=== PATIENT | female | born 1980 | race Caucasian/White ===

== ENCOUNTER 2018-02-12 08:29 | Day surgery (SDC) | payer BC ==
[2018-02-11 10:59] LABS: CHLORIDE,CL 105 mmol/L (98-107); SODIUM,NA 140 mmol/L (136-145)
[~2018-02-12 08:29] MED LIST: Fluorescein 5 ML Vial ONE; HYDROmorphone 2 MG/ML SDV ONE; Lactated Ringers 1,000 ML IV SCH; Lidocaine 2% 5 ML SDV ONE; Midazolam 1 MG/ML 2 ML SDV ONE; Ondansetron 4 MG/2 ML SDV ONE; Propofol 200 MG/20 ML SDV ONE; Rocuronium 10 MG/ML 10 ML Syringe ONE; Sodium Chloride 0.9% 10 ML Syringe FLUSH PRN; Sodium Chloride 0.9% 2.5 ML Syringe FLUSH PRN; ceFAZolin 2 GM in Premix Bag 1 BAG IV ONE; ceFAZolin/Dextrose,Iso-Osmotic 2 GM/50 ML Duplex Bag IV ONE; fentaNYL 250 MCG/5 ML SDV ONE
--- NOTE | 2018-02-12 09:28 | PCM.PREANE ---
Preanesthetic Assessment - Anesthesia/Transfusion/Family Hx Anesthesia History: Prior Anesthesia Without Reaction Other Type of Anesthesia Reaction Comment: Denies any known problems in the past Family History of Anesthesia Reaction: No Transfusion History: Prior Transfusion Without Reaction Intubation History: Unknown - Review of Systems General: No Symptoms Pulmonary: No Symptoms Cardiovascular: No Symptoms Gastrointestinal: No Symptoms Neurological: No Symptoms Other: Reports: None - Physical Assessment Height: 1.75 m Weight: 134.717 kg ASA Class: 2 Mental Status: Alert & Oriented x3 Airway Class: Mallampati = 2 Dentition: Reports: Normal Dentition, Broken Tooth/Teeth (small chip upper front (right), next tooth is '') Thyro-Mental Finger Breadths: 3 Mouth Opening Finger Breadths: 2 ROM/Head Extension: Full Lungs: Clear to Auscultation, Normal Respiratory Effort Cardiovascular: Regular Rate, Regular Rhythm - Lab Values: Laboratory Last Values WBC 7.50 K/uL (4.0-11.0) 02/11/18 10:14 RBC 4.88 M/uL (4.30-5.90) 02/11/18 10:14 Hgb 13.0 g/dL (12.0-16.0) 02/11/18 10:14 Hct 40.0 % (36.0-46.0) 02/11/18 10:14 MCV 82.0 fL (80.0-98.0) 02/11/18 10:14 MCH 26.6 pg (27.0-32.0) L 02/11/18 10:14 MCHC 32.5 g/dL (31.0-37.0) 02/11/18 10:14 RDW Std Deviation 41.4 fl (28.0-62.0) 02/11/18 10:14 RDW Coeff of Lilliam 14 % (11.0-15.0) 02/11/18 10:14 Plt Count 267 K/uL (150-400) 02/11/18 10:14 MPV 9.50 fL (7.40-12.00) 02/11/18 10:14 Nucleated RBC % 0.0 /100WBC 02/11/18 10:14 Nucleated RBCs # 0 K/uL 02/11/18 10:14 Sodium 140 mmol/L (136-145) 02/11/18 10:14 Potassium 4.3 mmol/L (3.5-5.1) 02/11/18 10:14 Chloride 105 mmol/L (98-107) 02/11/18 10:14 Carbon Dioxide 24.2 mmol/L (21.0-32.0) 02/11/18 10:14 BUN 14 mg/dL (7.0-18.0) 02/11/18 10:14 Creatinine 1.0 mg/dL (0.6-1.0) 02/11/18 10:14 Est Cr Clr Drug Dosing 79.72 mL/min 02/11/18 10:14 Estimated GFR (MDRD) > 60.0 ml/min 02/11/18 10:14 Glucose 108 mg/dL (74-106) H 02/11/18 10:14 Calcium 9.4 mg/dL (8.5-10.1) 02/11/18 10:14 HCG, Qual NEGATIVE (NEG) 02/11/18 10:14 Blood Type A POSITIVE 02/11/18 10:14 Antibody Screen NEGATIVE 02/11/18 10:14 - Allergies Allergies/Adverse Reactions: Allergies Allergy/AdvReac Type Severity Reaction Status Date / Time No Known Allergies Allergy Verified 02/10/18 07:36 - Blood Blood Available: No - Anesthesia Plan Pre-Op Medication Ordered: None - Acknowledgements Anesthesia Type Planned: General Anesthesia Pt an Appropriate Candidate for the Planned Anesthesia: Yes Alternatives and Risks of Anesthesia Discussed w Pt/Guardian: Yes Pt/Guardian Understands and Agrees with Anesthesia Plan: Yes PreAnesthesia Questionnaire HEENT History: Reports: Impaired Vision, Other (See Below) Other HEENT History: wears glasses Cardiovascular History: Reports: None, Other (See Below) (h/o HTN) Respiratory History: Reports: Asthma, COPD Gastrointestinal History: Reports: GERD Genitourinary History: Reports: None MANAGER OF MEDICAL History: Reports: Spontaneous Musculoskeletal History: Reports: Fracture Other Musculoskeletal History: hx fx rt arm and rt leg Neurological History: Reports: Migraines Psychiatric History: Reports: Anxiety, Depression Endocrine/Metabolic History: Reports: Diabetes, Type II, Obesity/BMI 30+ (BMI 43.9) Hematologic History: Reports: Blood Transfusion(s) Other Hematologic History: states blood transfusion after miscarriage Immunologic History: Reports: None Oncologic (Cancer) History: Reports: None Dermatologic History: Reports: Other (See Below) Other Dermatologic History: axillary hidradenitits suppurativa, MRSA - Infectious Disease History Infectious Disease History: Reports: MRSA - Past Surgical History Head Surgeries/Procedures: Reports: None GI Surgical History: Reports: EGD Female Surgical History: Reports: D&C, Tubal Ligation Musculoskeletal Surgical History: Reports: Carpal Tunnel Dermatological Surgical History: Reports: Other (See Below) (excision for axillary hydradenitis) - SUBSTANCE USE Smoking Status *Q: Current Every Day Smoker (1/2 ppd) Tobacco Use Within Last Twelve Months: Cigarettes Days Per Week of Alcohol Use: 0 Number of Drinks Per Day: 0 Total Drinks Per Week: 0 Recreational Drug Use History: No - HOME MEDS Home Medications: Home Meds Albuterol Sulfate [Albuterol Sulfate HFA] 2 puff INH ASDIRECTED PRN 01/16/15 [ History] metFORMIN [Glucophage XR] 500 mg PO ACDINNER 02/14/17 [History] Dulaglutide [Trulicity] 1.5 mg SUBCUT WEEKLY 02/10/18 [History] Empagliflozin [Jardiance] 10 mg PO DAILY 02/10/18 [History] Glycopyrrolate/Formoterol Fum [Bevespi Aerosphere Inhaler] 2 puff INH BID [History] Promethazine HCl 1 - 2 tab PO ASDIRECTED PRN 02/10/18 [History] - CURRENT (IN HOUSE) MEDS Current Meds: Current Medications Lactated Ringer's (Ringers, Lactated) 1,000 mls @ 125 mls/hr IV ASDIRECTED PRISCILA Sodium Chloride (Saline Flush) 10 ml FLUSH ASDIRECTED PRN PRN Reason: Keep Vein Open Sodium Chloride (Saline Flush) 2.5 ml FLUSH ASDIRECTED PRN PRN Reason: Keep Vein Open Discontinued Medications Cefazolin Sodium/Dextrose (Ancef) Confirm Administered Dose 2 gm IV .STK-MED ONE Stop: 02/12/18 08:28 Fentanyl (Sublimaze) Confirm Administered Dose 250 mcg .ROUTE .STK-MED ONE Stop: 02/12/18 08:28 Fluorescein Sodium (Ak-Fluor) Confirm Administered Dose 5 ml .ROUTE .STK-MED ONE Stop: 02/12/18 07:41 Hydromorphone HCl (Dilaudid) Confirm Administered Dose 2 mg .ROUTE .STK-MED ONE Stop: 02/12/18 08:29 Cefazolin Sodium/Dextrose 2 gm (/ Premix) 50 mls @ 100 mls/hr IV ONETIME ONE Stop: 02/11/18 10:17 Acetaminophen (Ofirmev) Confirm Administered Dose 100 mls @ as directed IV .STK- MED ONE Stop: 02/12/18 07:41 Lidocaine (Xylocaine-Mpf 2%) Confirm Administered Dose 5 ml .ROUTE .STK-MED ONE Stop: 02/12/18 08:28 Midazolam HCl (Versed 1 Mg/Ml) Confirm Administered Dose 2 mg .ROUTE .STK-MED ONE Stop: 02/12/18 08:28 Ondansetron HCl (Zofran) Confirm Administered Dose 4 mg .ROUTE .STK-MED ONE Stop: 02/12/18 08:28 Propofol (Diprivan 20 Ml) Confirm Administered Dose 200 mg .ROUTE .STK-MED ONE Stop: 02/12/18 08:28 Rocuronium [place] (Zemuron) Confirm Administered Dose 100 mg .ROUTE .STK-MED ONE Stop: 02/12/18 08:28
[2018-02-12] MEDS ORDERED: Scopolamine 1.5 MG Transdermal Patch TRDERM PRN (09:35)
[2018-02-12] MEDS ORDERED: Fluorescein 5 ML Vial ONE (09:41)
[2018-02-12] MEDS ORDERED: Octyl 2-Cyanoacrylate 1 Tube ONE (09:41)
[2018-02-12] MEDS ORDERED: Dextrose 5% in Water 1,000 ML IV SCH (09:45)
[2018-02-12] MEDS ORDERED: HYDROmorphone 2 MG/ML SDV ONE (11:03)
[2018-02-12] MEDS ORDERED: Dexamethasone 4 MG/ML 5 ML MDV ONE (11:10)
[2018-02-12] MEDS ORDERED: Neostigmine Methylsulfate 1 MG/ML 5 ML Syringe ONE (11:45)
[2018-02-12] MEDS ORDERED: Glycopyrrolate 0.2 MG/ML SDV ONE (11:45)
[2018-02-12] MEDS ORDERED: Promethazine 25 MG/ML SDV IM PRN (11:52)
[2018-02-12] MEDS ORDERED: Acetaminophen/oxyCODONE 325-5 MG Tab PO PRN (11:52)
[2018-02-12] MEDS ORDERED: Ketorolac 30 MG/ML SDV IVPUSH ONE (11:52)
[2018-02-12] MEDS ORDERED: Ondansetron 4 MG/2 ML SDV IVPUSH PRN (11:52)
[2018-02-12] MEDS ORDERED: Morphine 4 MG/ML Syringe IVPUSH PRN (11:52)
--- NOTE | 2018-02-12 11:58 | PCM.OPNOTE ---
- General Post-Op/Procedure Note Date of Surgery/Procedure: 02/12/18 Operative Procedure(s): TLH, [place]. Salpengectomy and Custoscopy. Pre Op Diagnosis: Bleeding Post-Op Diagnosis: Same Primary Surgeon: Hai Calvillo Manager Leasing: Yanira Ellsworth EBL in mLs: 150 Complications: None Condition: Good
[2018-02-12] MEDS: fentaNYL 100 MCG/2 ML SDV IVPUSH PRN ×2 (12:25→12:30)
--- NOTE | 2018-02-12 12:48 | PCM.POSTAN ---
POST ANESTHESIA ASSESSMENT - MENTAL STATUS Mental Status: Alert, Oriented - RESPIRATORY Respiratory Status: Respiratory Rate WNL, Airway Patent, O2 Saturation Stable - CARDIOVASCULAR CV Status: Pulse Rate WNL, Blood Pressure Stable - GASTROINTESTINAL GI Status: No Symptoms - PAIN Pain Score: 3 - POST OP HYDRATION Hydration Status: Adequate & Stable - OBSERVATIONS Free Text/Narrative:: no anesthesia problems
--- NOTE | 2018-02-12 14:12 | OR ---
SURGEON: Hai Calvillo MD DATE OF PROCEDURE: PREOPERATIVE DIAGNOSES: 1. Menometrorrhagia. 2. Large uterus. POSTOPERATIVE DIAGNOSES: 1. Menometrorrhagia. 2. Large uterus. OPERATIONS PERFORMED: 1. Total laparoscopic hysterectomy. 2. Bilateral salpingectomy, preserving both ovaries. PIGMENT MIXER: MARTHA Catalan ANESTHESIA: General endotracheal intubation, Moon Mendez and Dr. Smiley. ESTIMATED BLOOD LOSS: 150 mL. COMPLICATIONS: None. FINDINGS: Uterus is about 11 week size. There is no pelvic adhesion. INDICATION FOR SURGERY: [place] refer to the admit note. PROCEDURE IN DETAIL: The patient was brought to the OR, properly identified. After adequate level of general anesthesia, the patient was placed in lithotomy position with an access to the abdomen and the vagina. The colpotomizer manipulator was placed in the uterus for manipulation. Then, operation shifted abdominally. Stab wound done beneath the umbilicus. The Veress needle was placed in the peritoneal cavity and that cavity insufflated 3.5 L of carbon dioxide, and then the peritoneal cavity was entered through infraumbilical incision utilizing the Visiport technique. Once we are in the peritoneal cavity, then patient was placed in steep Trendelenburg, and 10 to 12 trocar placed in the left iliac fossa and a 5 mm trocar in the right iliac fossa. The operation was started by identifying the landmark of the pelvis and the superior pedicle coagulated and transected utilizing the DONTRELL-7 Harmonic scapula on both sides. Both tubes were removed. Then, the round ligament is coagulated and transected both sides and then anterior lip of broad ligament dissected downward medially pushing the bladder completely away from the operative field. Skeletonization of the uterine vessels at the level of the internal rings and these vessel coagulated and transected using Dontrell Harmonic scapula. There was an area of bleeding from the left uterine vessel that was isolated and identified, and hemoclips were used to stop the bleeding and hemostasis was achieved. Once that is done, then circular incision in the vaginal mucosa around the tip of the manipulator detaching the cervix from its attachment to the vagina. The uterus and both tubes removed vaginally and pneumoperitoneum re-established by placing vaginal pack in the vagina, and then vaginal cuff was closed with 2-0 PDS interrupted sutures. Once we did that and while we were doing that, we asked Anesthesia personnel to give the patient fluorescein and then the patient was taken out. Cystoscopy was performed. The bladder was intact. Both ureteric orifices were seen with the dye coming from both of them. Thus, the patency of both ureters verified and satisfied with these findings. The instrument and hardware were retrieved from the abdomen and the vagina, and the multiple laparoscopic incisions were closed in layers. The patient tolerated the procedure well, went to recovery room in stable general condition. CATINA / VILMA /[id number]
[2018-02-12] MEDS: Acetaminophen/oxyCODONE 325-5 MG Tab PO PRN ×3 (14:57→22:50)
[2018-02-12] MEDS ORDERED: Ketorolac 30 MG/ML SDV IVPUSH PRN (18:00)
[2018-02-13] MEDS: Acetaminophen/oxyCODONE 325-5 MG Tab PO PRN ×2 (03:10→08:40)
[2018-02-13 05:38] LABS: CHLORIDE,CL 105 mmol/L (98-107); SODIUM,NA 139 mmol/L (136-145)
--- NOTE | 2018-02-13 07:42 | PCM48HPAN ---
Post Anesthesia Note - EVALUATION WITHIN 48HRS OF ANESTHETIC Vital Signs in Normal Range: Yes Patient Participated in Evaluation: Yes Respiratory Function Stable: Yes Airway Patent: Yes Cardiovascular Function Stable: Yes Hydration Status Stable: Yes Pain Control Satisfactory: Yes Nausea and Vomiting Control Satisfactory: Yes Mental Status Recovered: Yes Resp Rate: 18
--- NOTE | 2018-02-13 09:07 | PCM.SURGPN ---
- General Info Date of Service: 02/13/18 POD#: 1 Functional Status: Reports: Pain Controlled - Review of Systems General: Reports: No Symptoms HEENT: Reports: No Symptoms Pulmonary: Reports: No Symptoms Cardiovascular: Reports: No Symptoms Gastrointestinal: Reports: No Symptoms Genitourinary: Reports: No Symptoms Musculoskeletal: Reports: No Symptoms Skin: Reports: No Symptoms Neurological: Reports: No Symptoms Psychiatric: Reports: No Symptoms - Patient Data Vitals - Most Recent: Last Vital Signs Temp 35.9 C 02/13/18 04:00 Pulse 90 02/13/18 04:00 Resp 18 02/13/18 07:42 BP 133/75 02/13/18 04:00 Pulse Ox 96 02/13/18 04:00 Weight - Most Recent: 134.717 kg I&O - Last 24 Hours: Intake & Output 02/12/18 02/13/18 02/13/18 22:59 06:59 14:59 Intake Total 800 Output Total 2100 Balance -1300 Lab Results Last 24 Hrs: Laboratory Results - last 24 hr 02/12/18 02/12/18 02/12/18 Range/Units 09:29 12:12 15:44 WBC (4.0-11.0) K/uL RBC (4.30-5.90) M/uL Hgb (12.0-16.0) g/dL Hct (36.0-46.0) % MCV (80.0-98.0) fL MCH (27.0-32.0) pg MCHC (31.0-37.0) g/dL RDW Std Deviation (28.0-62.0) fl RDW Coeff of Lilliam (11.0-15.0) % Plt Count (150-400) K/uL MPV (7.40-12.00) fL Neut % (Auto) (48.0-80.0) % Lymph % (Auto) (16.0-40.0) % [place] % (Auto) (0.0-15.0) % Eos % (Auto) (0.0-7.0) % Baso % (Auto) (0.0-1.5) % Neut # (Auto) (1.4-5.7) K/uL Lymph # (Auto) (0.6-2.4) K/uL [place] # (Auto) (0.0-0.8) K/uL Eos # (Auto) (0.0-0.7) K/uL Baso # (Auto) (0.0-0.1) K/uL Nucleated RBC % /100WBC Nucleated RBCs # K/uL Sodium (136-145) mmol/L Potassium (3.5-5.1) mmol/L Chloride (98-107) mmol/L Carbon Dioxide (21.0-32.0) mmol/L BUN (7.0-18.0) mg/dL Creatinine (0.6-1.0) mg/dL Est Cr Clr Drug Dosing mL/min Estimated GFR (MDRD) ml/min Glucose (74-106) mg/dL POC Glucose 79 109 128 H (60-110) mg/dL Calcium (8.5-10.1) mg/dL 02/13/18 02/13/18 Range/Units 04:55 04:55 WBC 15.27 H (4.0-11.0) K/uL RBC 4.67 (4.30-5.90) M/uL Hgb 12.5 (12.0-16.0) g/dL Hct 38.8 (36.0-46.0) % MCV 83.1 (80.0-98.0) fL MCH 26.8 L (27.0-32.0) pg MCHC 32.2 (31.0-37.0) g/dL RDW Std Deviation 41.7 (28.0-62.0) fl RDW Coeff of Lilliam 14 (11.0-15.0) % Plt Count 282 (150-400) K/uL MPV 9.60 (7.40-12.00) fL Neut % (Auto) 84.9 H (48.0-80.0) % Lymph % (Auto) 11.3 L (16.0-40.0) % [place] % (Auto) 3.6 (0.0-15.0) % Eos % (Auto) 0.1 (0.0-7.0) % Baso % (Auto) 0.1 (0.0-1.5) % Neut # (Auto) 13.0 H (1.4-5.7) K/uL Lymph # (Auto) 1.7 (0.6-2.4) K/uL [place] # (Auto) 0.6 (0.0-0.8) K/uL Eos # (Auto) 0.0 (0.0-0.7) K/uL Baso # (Auto) 0.0 (0.0-0.1) K/uL Nucleated RBC % 0.0 /100WBC Nucleated RBCs # 0 K/uL Sodium 139 (136-145) mmol/L Potassium 4.2 (3.5-5.1) mmol/L Chloride 105 (98-107) mmol/L Carbon Dioxide 26.9 (21.0-32.0) mmol/L BUN 10 (7.0-18.0) mg/dL Creatinine 0.8 (0.6-1.0) mg/dL Est Cr Clr Drug Dosing 99.64 mL/min Estimated GFR (MDRD) > 60.0 ml/min Glucose 108 H (74-106) mg/dL POC Glucose (60-110) mg/dL Calcium 8.8 (8.5-10.1) mg/dL Med Orders - Current: Current Medications Fentanyl (Sublimaze) 50 mcg IVPUSH .Q5MIN PRN PRN Reason: Pain Last Admin: 02/12/18 12:30 Dose: 50 mcg Lactated Ringer's (Ringers, Lactated) 1,000 mls @ 125 mls/hr IV ASDIRECTED [facility] Last Admin: 02/12/18 09:00 Dose: 125 mls/hr Dextrose/Water (Dextrose 5% In Water) 1,000 mls @ 75 mls/hr IV ASDIRECTED [facility] Ketorolac Tromethamine (Toradol) 30 mg IVPUSH Q6H PRN PRN Reason: Pain (severe 7-10) Stop: 02/17/18 18:01 Morphine Sulfate (Morphine) 4 mg IVPUSH Q2H PRN PRN Reason: Pain (severe 7-10) Ondansetron HCl (Zofran) 4 mg IVPUSH Q6H PRN PRN Reason: Nausea/Vomiting Oxycodone/Acetaminophen (Percocet 325-5 Mg) 1 tab PO Q4H PRN PRN Reason: Pain (moderate 4-6) Oxycodone/Acetaminophen (Percocet 325-5 Mg) 2 tab PO Q4H PRN PRN Reason: Pain (moderate 4-6) Last Admin: 02/13/18 08:40 Dose: 2 tab Promethazine HCl (Phenergan) 25 mg IM Q6H PRN PRN Reason: Nausea/Vomiting Scopolamine (Transderm-Scop) 1.5 mg TRDERM Q72H PRN PRN Reason: Nausea Last Admin: 02/12/18 13:02 Dose: 1.5 mg Sodium Chloride (Saline Flush) 10 ml FLUSH ASDIRECTED PRN PRN Reason: Keep Vein Open Sodium Chloride (Saline Flush) 2.5 ml FLUSH ASDIRECTED PRN PRN Reason: Keep Vein Open Discontinued Medications Cefazolin Sodium/Dextrose (Ancef) Confirm Administered Dose 2 gm IV .STK-MED ONE Stop: 02/12/18 08:28 Dexamethasone (Dexamethasone) Confirm Administered Dose 20 mg .ROUTE .STK-MED ONE Stop: 02/12/18 11:11 Fentanyl (Sublimaze) Confirm Administered Dose 250 mcg .ROUTE .STK-MED ONE Stop: 02/12/18 08:28 Fluorescein Sodium (Ak-Fluor) Confirm Administered Dose 5 ml .ROUTE .STK-MED ONE Stop: 02/12/18 07:41 Fluorescein Sodium (Ak-Fluor) Confirm Administered Dose 5 ml .ROUTE .STK-MED ONE Stop: 02/12/18 09:42 Glycopyrrolate (Robinul) Confirm Administered Dose 0.4 mg .ROUTE .STK-MED ONE Stop: 02/12/18 11:46 Hydromorphone HCl (Dilaudid) Confirm Administered Dose 2 mg .ROUTE .STK-MED ONE Stop: 02/12/18 08:29 Hydromorphone HCl (Dilaudid) Confirm Administered Dose 2 mg .ROUTE .STK-MED ONE Stop: 02/12/18 11:04 Cefazolin Sodium/Dextrose 2 gm (/ Premix) 50 mls @ 100 mls/hr IV ONETIME ONE Stop: 02/11/18 10:17 Last Admin: 02/12/18 13:45 Dose: Not Given Acetaminophen (Ofirmev) Confirm Administered Dose 100 mls @ as directed IV .STK- MED ONE Stop: 02/12/18 07:41 Acetaminophen (Ofirmev) Confirm Administered Dose 100 mls @ as directed IV .STK- MED ONE Stop: 02/12/18 09:54 Ketorolac Tromethamine (Toradol) 30 mg IVPUSH ONETIME ONE Stop: 02/12/18 11:53 Last Admin: 02/12/18 12:43 Dose: Not Given Lidocaine (Xylocaine-Mpf 2%) Confirm Administered Dose 5 ml .ROUTE .STK-MED ONE Stop: 02/12/18 08:28 Midazolam HCl (Versed 1 Mg/Ml) Confirm Administered Dose 2 mg .ROUTE .STK-MED ONE Stop: 02/12/18 08:28 Neostigmine Methylsulfate (Neostigmine) Confirm Administered Dose 5 mg .ROUTE .STK-MED ONE Stop: 02/12/18 11:46 Octyl Cyanoacrylate (Dermabond Advance) Confirm Administered Dose 1 applic .ROUTE .STK-MED ONE Stop: 02/12/18 09:42 Ondansetron HCl (Zofran) Confirm Administered Dose 4 mg .ROUTE .STK-MED ONE Stop: 02/12/18 08:28 Propofol (Diprivan 20 Ml) Confirm Administered Dose 200 mg .ROUTE .STK-MED ONE Stop: 02/12/18 08:28 Rocuronium [place] (Zemuron) Confirm Administered Dose 100 mg .ROUTE .STK-MED ONE Stop: 02/12/18 08:28 - Exam Wound/Incisions: Healing Well General: Alert, Oriented HEENT: Pupils Equal Neck: Supple Lungs: Clear to Auscultation, Normal Respiratory Effort Cardiovascular: Regular Rate, Regular Rhythm GI/Abdominal Exam: Normal Bowel Sounds, Soft, Non-Tender, No Organomegaly, No Distention, No Abnormal Bruit, No Mass, Pelvis Stable Extremities: Normal Inspection, Normal Range of Motion, Non-Tender, No Pedal Edema, Normal Capillary Refill Skin: Warm, Dry, Intact Neurological: No New Focal Deficit Psy/Mental Status: Alert, Normal Affect, Normal Mood - Problem List Review Problem List Initiated/Reviewed/Updated: Yes - My Orders Last 24 Hours: Active Orders 24 hr Category Date Time Status Patient Status [ADT] Routine ADT 02/12/18 11:53 Active Notify Provider Vital Signs [RC] ASDIRECTED Care 02/12/18 11:53 Active Oxygen Therapy [RC] ASDIRECTED Care 02/12/18 11:53 Active RT Incentive Spirometry [RC] Q2HWA Care 02/12/18 11:53 Active Up With Assistance [RC] PER UNIT ROUTINE Care 02/12/18 11:53 Active Up ad [place] [RC] PER UNIT ROUTINE Care 02/12/18 11:53 Active Urinary Catheter Removal [RC] Per Unit Routine Care 02/12/18 11:53 Active Regular Diet [DIET] Diet 02/12/18 Dinner Active Acetaminophen/oxyCODONE [Percocet 325-5 MG] Med 02/12/18 11:52 Active 1 tab PO Q4H PRN Acetaminophen/oxyCODONE [Percocet 325-5 MG] Med 02/12/18 11:52 Active 2 tab PO Q4H PRN Dextrose 5% in Water 1,000 ml Med 02/12/18 09:45 Active IV ASDIRECTED Ketorolac [Toradol] Med 02/12/18 18:00 Active 30 mg IVPUSH Q6H PRN Morphine Med 02/12/18 11:52 Active 4 mg IVPUSH Q2H PRN Ondansetron [Zofran] Med 02/12/18 11:52 Active 4 mg IVPUSH Q6H PRN Promethazine [Phenergan] Med 02/12/18 11:52 Active 25 mg IM Q6H PRN Scopolamine [Transderm-Scop] Med 02/12/18 09:35 Active 1.5 mg TRDERM Q72H PRN fentaNYL [Sublimaze] Med 02/12/18 11:07 Active 50 mcg IVPUSH .Q5MIN PRN Peripheral IV Discontinue [OM.PC] Routine Oth 02/12/18 11:53 Ordered Sequential Compression Device [OM.PC] Per Unit Routine Oth 02/12/18 11:53 Ordered Resuscitation Status Routine Resus Stat 02/12/18 11:52 Ordered Medication Orders Fentanyl (Sublimaze) 50 mcg IVPUSH .Q5MIN PRN PRN Reason: Pain Last Admin: 02/12/18 12:30 Dose: 50 mcg Admin: 02/12/18 12:25 Dose: 50 mcg Lactated Ringer's (Ringers, Lactated) 1,000 mls @ 125 mls/hr IV ASDIRECTED PRISCILA Last Admin: 02/12/18 09:00 Dose: 125 mls/hr Dextrose/Water (Dextrose 5% In Water) 1,000 mls @ 75 mls/hr IV ASDIRECTED PRISCILA Ketorolac Tromethamine (Toradol) 30 mg IVPUSH Q6H PRN PRN Reason: Pain (severe 7-10) Stop: 02/17/18 18:01 Morphine Sulfate (Morphine) 4 mg IVPUSH Q2H PRN PRN Reason: Pain (severe 7-10) Ondansetron HCl (Zofran) 4 mg IVPUSH Q6H PRN PRN Reason: Nausea/Vomiting Oxycodone/Acetaminophen (Percocet 325-5 Mg) 1 tab PO Q4H PRN PRN Reason: Pain (moderate 4-6) Oxycodone/Acetaminophen (Percocet 325-5 Mg) 2 tab PO Q4H PRN PRN Reason: Pain (moderate 4-6) Last Admin: 02/13/18 08:40 Dose: 2 tab Admin: 02/13/18 03:10 Dose: 2 tab Admin: 02/12/18 22:50 Dose: 2 tab Admin: 02/12/18 18:44 Dose: 2 tab Admin: 02/12/18 14:57 Dose: 2 tab Promethazine HCl (Phenergan) 25 mg IM Q6H PRN PRN Reason: Nausea/Vomiting Scopolamine (Transderm-Scop) 1.5 mg TRDERM Q72H PRN PRN Reason: Nausea Last Admin: 02/12/18 13:02 Dose: 1.5 mg Sodium Chloride (Saline Flush) 10 ml FLUSH ASDIRECTED PRN PRN Reason: Keep Vein Open Sodium Chloride (Saline Flush) 2.5 ml FLUSH ASDIRECTED PRN PRN Reason: Keep Vein Open - Assessment Assessment (Free Text/Narrative):: Status post total laparoscopic hysterectomy postoperative day #1 patient doing well on regular diet and voiding without any problem no vaginal bleeding. - Plan Plan (Free Text/Narrative):: Patient will be sent home the postvasectomy instruction is given to the patient prescription for Percocet 7.5/325 is given for postoperative pain the patient is to be followed in the office 1 week of her discharge for postoperative checkup
== END 2018-02-13 09:48 | disposition home or self-care (01) ==
LOC: MW.SDS 08:29 → MW.MS 12:30 → MW.SDS 02-13 09:48
PROVIDERS: ATTEND Obstetrics & Gynecology
DX: N80.0 Endometriosis of uterus (principal); N72 Inflammatory disease of cervix uteri; N88.8 Other specified noninflammatory disorders of cervix uteri; J44.9 Chronic obstructive pulmonary disease, unspecified; F32.9 Major depressive disorder, single episode, unspecified; E11.9 Type 2 diabetes mellitus without complications; F41.8 Other specified anxiety disorders; K21.9 Gastro-esophageal reflux disease without esophagitis; E66.01 Morbid (severe) obesity due to excess calories; Z79.84 Long term (current) use of oral hypoglycemic drugs; Z79.899 Other long term (current) drug therapy; Z98.51 Tubal ligation status; Z87.09 Personal history of other diseases of the respiratory system; F17.210 Nicotine dependence, cigarettes, uncomplicated; Z68.41 Body mass index [BMI] 40.0-44.9, adult
CPT/HCPCS: 36415; 58571; 80048; 82962; 84703; 85025; 85027; 86850; 86900; 86901; A9270; J0690; J1100; J1170; J2250; J2405; J3010; J7120; 00840; 88307; J2704

== ENCOUNTER 2021-09-25 23:08 | Emergency (ER) | payer BC ==
[2021-09-25] MEDS ORDERED: Morphine 4 MG/ML VIAL IVPUSH ONE (23:12)
--- NOTE | 2021-09-25 23:14 | EDM.PDOC ---
ED HPI GENERAL MEDICAL PROBLEM - General Chief Complaint: Lower Extremity Injury/Pain Stated Complaint: RT KNEE PAIN Time Seen by Provider: 09/25/21 23:13 Source of Information: Reports: Patient History Limitations: Reports: No Limitations - History of Present Illness INITIAL COMMENTS - FREE TEXT/NARRATIVE: 41-year-old morbidly obese female with history of DM 2 and COPD presents with right knee pain after falling off a ladder and landing on her right knee while cleaning the gutter just prior to arrival. She did not hit her head. She denies headache, neck pain, abdominal pain, chest pain, hip pain. She notes pain localized to the right knee that is moderate, constant, nonradiating with no alleviating or exacerbating factors, sharp. She has not been able to weight bear since. EMS administered 100 MCG fentanyl IV, her last p.o. intake was 9 PM. ROS: A 10-point review of systems, other than pertinent positives and negatives as stated per HPI, is otherwise negative Past medical history: No additional pertinent history Past Surgical history: No additional pertinent history Social history: No additional pertinent history Family history: No additional pertinent history PHYSICAL EXAM General: AOx4, GCS = 15, morbid obesity, moderate distress HEENT: dry mucous membrane Neck: supple, no meningismus, no Kernig or Brudzinski Cardiac: S1S2 RRR Respiratory: CTAB, no crackles or rales, no wheezing Abdomen: Soft, nontender, no rebound or guarding, nondistended, no pulsatile mass. Back: nontender Musculoskeletal: NVI distally, right knee tender with deformity. Neuro: No focal deficits, CN 2 - 12 WNL. Right Knee Pain Score (Numeric/FACES): 8 - Related Data Allergies Allergy/AdvReac Type Severity Reaction Status Date / Time No Known Allergies Allergy Verified 09/25/21 23:14 Home Meds: Home Meds metFORMIN [Glucophage XR] 500 mg PO ACDINNER 02/14/17 [History] Acetaminophen/oxyCODONE [Percocet 325-5 MG] 1 each PO Q6H PRN #12 tab 09/26/21 [Rx] Past Medical History HEENT History: Reports: Impaired Vision, Other (See Below) Other HEENT History: wears glasses Cardiovascular History: Reports: Other (See Below) Respiratory History: Reports: Asthma, COPD Gastrointestinal History: Reports: GERD Genitourinary History: Reports: None 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 Musculoskeletal History: Reports: Fracture Other Musculoskeletal History: hx fx rt arm and rt leg Neurological History: Reports: Migraines Psychiatric History: Reports: Anxiety, Depression Endocrine/Metabolic History: Reports: Diabetes, Type II, Obesity/BMI 30+ Hematologic History: Reports: Blood Transfusion(s) Other Hematologic History: states blood transfusion after miscarriage Immunologic History: Reports: None Oncologic (Cancer) History: Reports: None Dermatologic History: Reports: Other (See Below) Other Dermatologic History: axillary hidradenitits suppurativa, MRSA - Infectious Disease History Infectious Disease History: Reports: MRSA - Past Surgical History GI Surgical History: Reports: EGD Female Surgical History: Reports: D&C, Tubal Ligation Musculoskeletal Surgical History: Reports: Carpal Tunnel Dermatological Surgical History: Reports: Other (See Below) Social & Family History - Family History Family Medical History: No Pertinent Family History - Caffeine Use Caffeine Use: Reports: None Review of Systems - Review of Systems Review Of Systems: See Below (see dictation) ED EXAM, GENERAL - Physical Exam Exam: See Below (see dictation) ED TRAUMA EXTREMITY PROCEDURES - Joint Reduction Right Knee Pre-Procedure NV Status: Normal Post-Procedure NV Status: Normal Technique: Traction/Counter Traction Number of Attempts: 1 Post-Reduction Imaging: Acceptably Reduced Joint Reduction Complications: No - Splinting Right Lower Extremity Splint Site: right knee Pre-Procedure NV Status: Normal Post-Procedure NV Status: Normal Splint Design: Knee Immobilizer Applied & Form Fitted By: Provider, Nurse Provider Post-Splint Application NV Check: NV Status Normal, Good Position Complications: No Course - Vital Signs Last Recorded V/S: Last Vital Signs Temp 97.5 F 09/25/21 23:15 Pulse 109 H 09/26/21 00:43 Resp 18 09/26/21 00:43 BP 162/79 H 09/26/21 00:43 Pulse Ox 93 L 09/26/21 00:43 - Orders/Labs/Meds Orders: Active Orders 24 hr Category Date Time Status Lactated Ringers [Ringers, Lactated] 1,000 ml Med 09/26/21 01:13 Active IV .BOLUS DME for Discharge [COMM] Stat Oth 09/26/21 01:55 Ordered Medication Orders Lactated Ringer's (Ringers, Lactated) 1,000 mls @ 999 mls/hr IV .BOLUS ONE Stop: 09/26/21 02:13 Labs: Laboratory Tests 09/26/21 09/26/21 09/26/21 Range/Units 00:05 01:13 01:13 WBC 9.95 (4.0-11.0) K/uL RBC 4.25 L (4.30-5.90) M/uL Hgb 11.8 L (12.0-16.0) g/dL Hct 35.0 L (36.0-46.0) % MCV 82.4 (80.0-98.0) fL MCH 27.8 (27.0-32.0) pg MCHC 33.7 (31.0-37.0) g/dL RDW Std Deviation 41.1 (28.0-62.0) fl RDW Coeff of Lilliam 14 (11.0-15.0) % Plt Count 234 (150-400) K/uL MPV 9.50 (7.40-12.00) fL Neut % (Auto) 79.5 (48.0-80.0) % Lymph % (Auto) 15.0 L (16.0-40.0) % O'Brien % (Auto) 4.9 (0.0-15.0) % Eos % (Auto) 0.6 (0.0-7.0) % Baso % (Auto) 0.0 (0.0-1.5) % Neut # (Auto) 7.9 H (1.4-5.7) K/uL Lymph # (Auto) 1.5 (0.6-2.4) K/uL O'Brien # (Auto) 0.5 (0.0-0.8) K/uL Eos # (Auto) 0.1 (0.0-0.7) K/uL Baso # (Auto) 0.0 (0.0-0.1) K/uL Nucleated RBC % 0.0 /100WBC Nucleated RBCs # 0 K/uL INR 0.99 Sodium (136-145) mmol/L Potassium (3.5-5.1) mmol/L Chloride (98-107) mmol/L Carbon Dioxide (21.0-32.0) mmol/L BUN (7.0-18.0) mg/dL Creatinine (0.6-1.0) mg/dL Est Cr Clr Drug Dosing mL/min Estimated GFR (MDRD) ml/min Glucose (74-106) mg/dL Calcium (8.5-10.1) mg/dL Total Bilirubin (0.2-1.0) mg/dL AST (15-37) IU/L ALT (14-63) IU/L Alkaline Phosphatase (46-116) U/L Total Protein (6.4-8.2) g/dL Albumin (3.4-5.0) g/dL Globulin (2.6-4.0) g/dL Albumin/Globulin Ratio (0.9-1.6) HCG, Qual (NEG) SARS-CoV-2 RNA (LEX) NEGATIVE (NEGATIVE) 09/26/21 09/26/21 Range/Units 01:13 01:13 WBC (4.0-11.0) K/uL RBC (4.30-5.90) M/uL Hgb (12.0-16.0) g/dL Hct (36.0-46.0) % MCV (80.0-98.0) fL MCH (27.0-32.0) pg MCHC (31.0-37.0) g/dL RDW Std Deviation (28.0-62.0) fl RDW Coeff of Lilliam (11.0-15.0) % Plt Count (150-400) K/uL MPV (7.40-12.00) fL Neut % (Auto) (48.0-80.0) % Lymph % (Auto) (16.0-40.0) % O'Brien % (Auto) (0.0-15.0) % Eos % (Auto) (0.0-7.0) % Baso % (Auto) (0.0-1.5) % Neut # (Auto) (1.4-5.7) K/uL Lymph # (Auto) (0.6-2.4) K/uL O'Brien # (Auto) (0.0-0.8) K/uL Eos # (Auto) (0.0-0.7) K/uL Baso # (Auto) (0.0-0.1) K/uL Nucleated RBC % /100WBC Nucleated RBCs # K/uL INR Sodium 135 L (136-145) mmol/L Potassium 4.4 (3.5-5.1) mmol/L Chloride 99 (98-107) mmol/L Carbon Dioxide 26.3 (21.0-32.0) mmol/L BUN 14 (7.0-18.0) mg/dL Creatinine 0.9 (0.6-1.0) mg/dL Est Cr Clr Drug Dosing 85.97 mL/min Estimated GFR (MDRD) > 60.0 ml/min Glucose 273 H (74-106) mg/dL Calcium 8.7 (8.5-10.1) mg/dL Total Bilirubin 0.2 (0.2-1.0) mg/dL AST 14 L (15-37) IU/L ALT 24 (14-63) IU/L Alkaline Phosphatase 78 (46-116) U/L Total Protein 7.5 (6.4-8.2) g/dL Albumin 3.2 L (3.4-5.0) g/dL Globulin 4.3 H (2.6-4.0) g/dL Albumin/Globulin Ratio 0.7 L (0.9-1.6) HCG, Qual NEGATIVE (NEG) SARS-CoV-2 RNA (LEX) (NEGATIVE) Meds: Medications Generic Name Dose Route Start Last Admin Trade Name Freq PRN Reason Stop Dose Admin Lactated Ringer's 1,000 mls @ 999 mls/hr 09/26/21 01:13 Ringers, Lactated IV 09/26/21 02:13 .BOLUS ONE Discontinued Medications Generic Name Dose Route Start Last Admin Trade Name Freq PRN Reason Stop Dose Admin Fentanyl 100 mcg 09/26/21 01:48 09/26/21 02:01 Fentanyl 50 Mcg/Ml Sdv IVPUSH 09/26/21 01:49 100 mcg ONETIME ONE Administration Hydromorphone HCl 1 mg 09/26/21 00:29 09/26/21 00:38 Hydromorphone 1 Mg/Ml Syringe IVPUSH 09/26/21 00:30 1 mg ONETIME ONE Administration Midazolam HCl 1 mg 09/26/21 01:48 09/26/21 02:01 Midazolam 1 Mg/Ml 2 Ml Sdv IVPUSH 09/26/21 01:49 1 mg ONETIME ONE Administration Morphine Sulfate 4 mg 09/25/21 23:12 09/25/21 23:23 Morphine 4 Mg/Ml Vial IVPUSH 09/25/21 23:13 4 mg ONETIME ONE Administration - Re-Assessments/Exams Free Text/Narrative Re-Assessment/Exam: 09/26/21 01:[address] Chirag Kelsey, he recommends transferring patient to [place] given her being high risk surgical candidate due to history of diabetes and morbid obesity. 09/26/21 01:[address] Wilcox (Orthopedics) at [facility], he recommends calling the ER for transfer if they have capacity, if they do not have capacity, then place her in a knee immobilizer and have the patient follow-up with orthopedic clinic. 09/26/21 02:16 After applying knee immobilizer and crutches in the ER, the patient improved and is currently stable for discharge. I performed a repeat exam and she is NVI distally, instructed to be NWB until follow up with ortho. I advised the patient to return to the ER for reevaluation if symptoms worsened, including fever, worsening pain, or any other worrisome symptoms. I instructed the patient to follow up with orthopedic clinic in [place] within 2-3 days for definitive treatment. MEDICAL DECISION MAKING: I reviewed the patients past medical records, lab and radiographic findings. I discussed the case with the patient. My differential diagnosis included: Fracture, dislocation, ligamentous injury. CT demonstrated a comminuted fracture to the lateral femoral condyle with displacement of the distal fracture fragments, along with a lateral dislocation of the patella which was reduced in the ED. She was placed in knee immobilizer and discharged with crutches, nonweightbearing until follow-up with orthopedic clinic. The affected extremity demonstrated good distal perfusion, warm, pink, cap refill <2 seconds, compartments soft, pulses equal in both extremities. Patient understands to return immediately for worsening pain, swelling, fever, numbn ess/tingling or other concerns and to f/u with orthopedics within 2 to 3 days. Departure - Departure Time of Disposition: 02:08 Disposition: Home, Self-Care 01 Condition: Good Clinical Impression: Dislocation, patella closed, Fx femoral condyle-closed - Discharge Information *PRESCRIPTION DRUG MONITORING PROGRAM REVIEWED*: Not Applicable *COPY OF PRESCRIPTION DRUG MONITORING REPORT IN PATIENT CLARICE: Not Applicable Prescriptions: Acetaminophen/oxyCODONE [Percocet 325-5 MG] 1 each PO Q6H PRN #12 tab PRN Reason: Pain (Moderate 4-6) Instructions: Cast or Splint Care, Adult, [id number], Crutch Use, Adult, [id number], How to Use a Knee Immobilizer, [id number], Distal Femur Fracture Treated With Immobilization, Patellar Dislocation Referrals: Kendall Wilcox MD [Ordering Only Provider] - 3 Days Forms: ED Department Discharge Additional Instructions: The need for follow-up, as well as the timing and circumstances, are variable depending upon the specifics of your emergency department visit. If you don't have a primary care physician on staff, we will provide you with a referral. We always advise you to contact your personal physician following an emergency department visit to inform them of the circumstance of the visit and for follow-up with them and/or the need for any referrals to a consulting specialist. The emergency department will also refer you to a specialist when appropriate. This referral assures that you have the opportunity for follow-up care with a specialist. All of these measure are taken in an effort to provide you with optimal care, which includes your follow-up. Under all circumstances we always encourage you to contact your private physician who remains a resource for coordinating your care. When calling for follow-up care, please make the office aware that this follow-up is from your recent emergency room visit. If for any reason you are refused follow-up, please contact the [facility] Emergency Department at and asked to speak to the emergency department charge nurse. If you do not have a primary care doctor, please follow up with the clinics below within 3-5 days. Orthopedic Clinic [facility] [address], [address] [place] [address] Sepsis Event Note (ED) - Focused Exam Vital Signs: Vital Signs Temp Pulse Resp BP Pulse Ox 09/26/21 00:43 109 H 18 162/79 H 93 L 09/25/21 23:15 97.5 F 102 H 18 156/84 H 98 - My Orders Last 24 Hours: My Active Orders 09/26/21 01:13 Lactated Ringers [Ringers, Lactated] 1,000 ml IV .BOLUS 09/26/21 01:55 DME for Discharge [COMM] Stat - Assessment/Plan Last 24 Hours: My Active Orders 09/26/21 01:13 Lactated Ringers [Ringers, Lactated] 1,000 ml IV .BOLUS 09/26/21 01:55 DME for Discharge [COMM] Stat
[2021-09-26] MEDS ORDERED: HYDROmorphone 1 MG/ML Syringe IVPUSH ONE (00:29)
--- NOTE | 2021-09-26 00:54 | CR ---
INDICATION: Pain. Fall. COMPARISON: 02/14/2017 right knee radiographs. FINDINGS/IMPRESSION: Right knee, two views. Acute comminuted fracture of the lateral femoral condyle, with posterolateral displacement of the major fracture fragments. Lateral dislocation, and rotation, of the patella. CT of the knee is recommended for further evaluation. Dictated by Trenton Rodriguez MD @ 09/26/2021 12:50:11 AM Dictated by: Trenton Rodriguez MD @ 09/26/2021 00:52:05 (Electronically Signed)
[2021-09-26] MEDS ORDERED: Lactated Ringers 1,000 ML IV ONE (01:13)
--- NOTE | 2021-09-26 01:23 | CT ---
Indication: Evaluate knee fracture. Technique: Noncontrast spiral CT examination of the knee is performed to obtain 1 and 3 mm thick axial and 2 mm thick sagittal and coronal sections. Please note that all CT scans at this facility use dose modulation, iterative reconstruction, and/or weight-based dosing when appropriate to reduce radiation dose to as low as reasonably achievable. Comparison: Plain films of the knee from earlier this evening. Findings: There is a comminuted fracture of the lateral femoral condyle with prominent lateral and posterior displacement of the major distal fracture fragments. This results in a mild genu valgus. There is prominent lateral dislocation of the patella with no sign of patellar fracture. There is a moderate suprapatellar joint effusion with a fat-blood level. Small bubbles of gas are seen in the suprapatellar joint effusion as well as in a joint effusion superior to the dislocated patella. There is no sign of any additional fracture. The relationships of the medial joint compartments are anatomic. Impression: Acute, comminuted fracture of the lateral femoral condyle with prominent lateral and posterior displacement of the distal fracture fragments. Prominent lateral dislocation of the patella. Moderate suprapatellar and peripatellar joint effusion with fat-blood level related to acute fracture. Please note that all CT scans at this facility use dose modulation, iterative reconstruction, and/or weight-based dosing when appropriate to reduce radiation dose to as low as reasonably achievable. Dictated by Mike Mojica MD @ 09/26/2021 1:22:02 AM (Electronically Signed)
[2021-09-26 01:40] LABS: BLOOD UREA NITROGEN,BUN 14 mg/dL (7.0-18.0); CARBON DIOXIDE,CO2 26.3 mmol/L (21.0-32.0); CHLORIDE,CL 99 mmol/L (98-107); GLUCOSE RANDOM 273 mg/dL (74-106); POTASSIUM,K 4.4 mmol/L (3.5-5.1); SODIUM,NA 135 mmol/L (136-145)
[2021-09-26] MEDS ORDERED: fentaNYL 50 MCG/ML SDV IVPUSH ONE (01:48)
[2021-09-26] MEDS ORDERED: Midazolam 1 MG/ML 2 ML SDV IVPUSH ONE (01:48)
[2021-09-26] MEDS ORDERED: fentaNYL 50 MCG/ML SDV ONE (02:03)
== END 2021-09-26 02:39 | disposition home or self-care (01) ==
LOC: MW.ED 23:08
DX: S72.421A Displaced fracture of lateral condyle of right femur, initial encounter for closed fracture (principal); S83.004A Unspecified dislocation of right patella, initial encounter; E11.9 Type 2 diabetes mellitus without complications; J44.9 Chronic obstructive pulmonary disease, unspecified; E66.01 Morbid (severe) obesity due to excess calories; Z79.84 Long term (current) use of oral hypoglycemic drugs; Z68.42 Body mass index [BMI] 45.0-49.9, adult; Z20.822 Contact with and (suspected) exposure to COVID-19; W18.39XA Other fall on same level, initial encounter
CPT/HCPCS: 27560; 36415; 73560; 73700; 80053; 84703; 85025; 85610; 87635; 96374; 96375; 99284; J1170; J2250; J2270; J3010; 29505; 99283; U0002

== ENCOUNTER 2021-09-26 10:43 | Emergency (ER) | payer BC ==
[2021-09-26] MEDS ORDERED: Ketorolac 30 MG/ML SDV IVPUSH ONE (11:22)
--- NOTE | 2021-09-26 11:22 | EDM.PDOC ---
ED HPI GENERAL MEDICAL PROBLEM - General Chief Complaint: Lower Extremity Injury/Pain Stated Complaint: FELL OFF LADDER OUTSIDE Time Seen by Provider: 09/26/21 10:52 - History of Present Illness INITIAL COMMENTS - FREE TEXT/NARRATIVE: Patient is a 41-year-old female who returns today for pain control. Patient was seen here last night after she suffered a fracture to her femur. There is fracture required surgery however due to the bed shortage throughout the nation patient cannot be transferred and she elected to go home. She returned today because she is so much pain) at home and the pain that she was sent home with is not working. Patient denies any new injuries. right knee Pain Score (Numeric/FACES): 8 - Related Data Allergies Allergy/AdvReac Type Severity Reaction Status Date / Time No Known Allergies Allergy Verified 09/26/21 10:48 Home Meds: Home Meds metFORMIN [Glucophage XR] 500 mg PO ACDINNER 02/14/17 [History] Acetaminophen/oxyCODONE [Percocet 325-5 MG] 1 each PO Q6H PRN #12 tab 09/26/21 [Rx] Past Medical History HEENT History: Reports: Impaired Vision, Other (See Below) Other HEENT History: wears glasses Cardiovascular History: Reports: Other (See Below) Respiratory History: Reports: Asthma, COPD Gastrointestinal History: Reports: GERD Genitourinary History: Reports: None 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 Musculoskeletal History: Reports: Fracture Other Musculoskeletal History: hx fx rt arm and rt leg Neurological History: Reports: Migraines Psychiatric History: Reports: Anxiety, Depression Endocrine/Metabolic History: Reports: Diabetes, Type II, Obesity/BMI 30+ Hematologic History: Reports: Blood Transfusion(s) Other Hematologic History: states blood transfusion after miscarriage Immunologic History: Reports: None Oncologic (Cancer) History: Reports: None Dermatologic History: Reports: Other (See Below) Other Dermatologic History: axillary hidradenitits suppurativa, MRSA - Infectious Disease History Infectious Disease History: Reports: MRSA - Past Surgical History Head Surgeries/Procedures: Reports: None HEENT Surgical History: Reports: None GI Surgical History: Reports: EGD Female Surgical History: Reports: D&C, Tubal Ligation Musculoskeletal Surgical History: Reports: Carpal Tunnel Dermatological Surgical History: Reports: Other (See Below) Social & Family History - Family History Family Medical History: No Pertinent Family History - Tobacco Use Tobacco Use Status *Q: Current Every Day Tobacco User Years of Tobacco use: 25 Packs/Tins Daily: 0.7 - Caffeine Use Caffeine Use: Reports: None - Recreational Drug Use Recreational Drug Use: No Review of Systems - Review of Systems Review Of Systems: See Below Constitutional: Reports: No Symptoms Eyes: Reports: No Symptoms Ears: Reports: No Symptoms Nose: Reports: No Symptoms Mouth/Throat: Reports: No Symptoms Respiratory: Reports: No Symptoms Cardiovascular: Reports: No Symptoms GI/Abdominal: Reports: No Symptoms Genitourinary: Reports: No Symptoms Musculoskeletal: Reports: Leg Pain Skin: Reports: No Symptoms Neurological: Reports: No Symptoms Psychiatric: Reports: No Symptoms ED EXAM, GENERAL - Physical Exam Exam: See Below Exam Limited By: No Limitations Head: Atraumatic Neck: Normal Inspection Respiratory/Chest: No Respiratory Distress GI/Abdominal: Normal Bowel Sounds Extremities: Other (Knees in the immobilizer good pulses) Neurological: Alert, Oriented Course - Vital Signs Last Recorded V/S: Last Vital Signs Temp 97.1 F 09/26/21 10:46 Pulse 105 H 09/26/21 11:37 Resp 18 09/26/21 11:37 BP 136/78 09/26/21 11:37 Pulse Ox 98 09/26/21 11:37 - Orders/Labs/Meds Meds: Medications Discontinued Medications Generic Name Dose Route Start Last Admin Trade Name Raul PRN Reason Stop Dose Admin Ketorolac Tromethamine 30 mg 09/26/21 11:22 09/26/21 11:37 Ketorolac 30 Mg/Ml Sdv IVPUSH 09/26/21 11:23 30 mg ONETIME ONE Administration Lidocaine 5 ml 09/26/21 11:31 09/26/21 12:40 Lidocaine 2% 5 Ml Sdv INJECT 09/26/21 11:32 Not Given ONETIME ONE Lidocaine HCl 10 ml 09/26/21 11:51 Lidocaine 1% 5 Ml Sdv INJECT 09/26/21 11:52 ONETIME ONE - Re-Assessments/Exams Free Text/Narrative Re-Assessment/Exam: 09/26/21 12:[address] [facility] and I have assessed the patient. Order Doppler when we attempt to reduce the patella however read my colleagues note he tried last night without success and patient also reports that there was no assessment painful I spoke to my orthopedic doctor here and I recommended not attempting as the fracture will not hold the patella in place and continue to slip out. We may see this is aware of this. Patient will be given more pain control and transfer to [facility] for further care. Departure - Departure Time of Disposition: 12:08 Disposition: DC/Tfer to [facility] 02 Condition: Good Clinical Impression: Fracture of lateral condyle of femur - Discharge Information *PRESCRIPTION DRUG MONITORING PROGRAM REVIEWED*: Not Applicable *COPY OF PRESCRIPTION DRUG MONITORING REPORT IN PATIENT CLARICE: Not Applicable Referrals: PCP,None [Primary Care Provider] - Forms: ED Department Discharge Sepsis Event Note (ED) - Evaluation Sepsis Screening Result: No Definite Risk - Focused Exam Vital Signs: Vital Signs Temp Pulse Resp BP Pulse Ox 09/26/21 11:37 105 H 18 136/78 98 09/26/21 10:46 97.1 F 117 H 18 143/72 H 100 - Assessment/Plan Plan: Patient is a 41-year-old female who presents today for right knee pain. She was seen yesterday and has fractures of the distal femur that likely require surgery. Due to there not been any beds available throughout the nation patient left to go home last night but returned with increased pain. We will continue to look for placement for patient and she will likely need surgery to repair this.
[2021-09-26] MEDS ORDERED: Lidocaine 2% 5 ML SDV INJECT ONE (11:31)
== END 2021-09-26 13:00 ==
LOC: MW.ED 10:43
DX: S72.421A Displaced fracture of lateral condyle of right femur, initial encounter for closed fracture (principal); J44.9 Chronic obstructive pulmonary disease, unspecified; E11.9 Type 2 diabetes mellitus without complications; E66.9 Obesity, unspecified; Z68.42 Body mass index [BMI] 45.0-49.9, adult; Z72.0 Tobacco use; Z79.84 Long term (current) use of oral hypoglycemic drugs; W11.XXXA Fall on and from ladder, initial encounter
CPT/HCPCS: 96374; 99285; J1885

== ENCOUNTER 2022-11-23 21:21 | Emergency (ER) | payer BC ==
[2022-11-23] MEDS ORDERED: LORazepam 2 MG/ML SDV IVPUSH ONE (21:39)
[2022-11-23] MEDS ORDERED: Meclizine 25 MG Tab PO ONE (21:39)
[2022-11-23] MEDS ORDERED: Sodium Chloride 0.9% 1,000 ML IV ONE (21:39)
[2022-11-23 22:54] LABS: BLOOD UREA NITROGEN,BUN 12 mg/dL (7.0-18.0); CARBON DIOXIDE,CO2 26.4 mmol/L (21.0-32.0); CHLORIDE,CL 103 mmol/L (98-107); GLUCOSE RANDOM 212 mg/dL (74-106); POTASSIUM,K 3.8 mmol/L (3.5-5.1); SODIUM,NA 137 mmol/L (136-145)
[2022-11-23 22:55] LABS: ESTIMATED GFR 82 mL/min (>60)
[2022-11-23 23:00] LABS: CORONAVIRUS COVID-19 NAA NEGATIVE (NEGATIVE); INFLUENZA A NAA NEGATIVE (NEGATIVE); INFLUENZA B NAA NEGATIVE (NEGATIVE)
== END 2022-11-24 00:05 | disposition home or self-care (01) ==
LOC: MW.ED 21:21
DX: R42 Dizziness and giddiness (principal); J44.9 Chronic obstructive pulmonary disease, unspecified; E11.9 Type 2 diabetes mellitus without complications; E66.9 Obesity, unspecified; Z68.41 Body mass index [BMI] 40.0-44.9, adult; Z72.0 Tobacco use; Z79.82 Long term (current) use of aspirin; Z79.899 Other long term (current) drug therapy; Z79.84 Long term (current) use of oral hypoglycemic drugs; Z20.822 Contact with and (suspected) exposure to COVID-19
CPT/HCPCS: 0240U; 36415; 71045; 80053; 84443; 84484; 84703; 85025; 93005; 96361; 96374; 99284; A9270; J2060; J7030; 93010

== ENCOUNTER 2023-01-22 15:35 | Emergency (ER) | payer BC ==
[2023-01-22] MEDS ORDERED: Morphine 2 MG/ML SYRINGE IVPUSH ONE (15:46)
[2023-01-22] MEDS ORDERED: Ondansetron 4 MG/2 ML SDV IVPUSH ONE (15:46)
[2023-01-22] MEDS ORDERED: Sodium Chloride 0.9% 1,000 ML IV SCH (16:00)
[2023-01-22] MEDS ORDERED: Sodium Chloride 0.9% 1,000 ML IV STA (16:06)
[2023-01-22 16:47] LABS: CORONAVIRUS COVID-19 NAA NEGATIVE (NEGATIVE); INFLUENZA A NAA NEGATIVE (NEGATIVE); INFLUENZA B NAA NEGATIVE (NEGATIVE)
== END 2023-01-22 17:39 | disposition home or self-care (01) ==
LOC: MW.ED 15:35
DX: S83.91XA Sprain of unspecified site of right knee, initial encounter (principal); J44.9 Chronic obstructive pulmonary disease, unspecified; K21.9 Gastro-esophageal reflux disease without esophagitis; E11.9 Type 2 diabetes mellitus without complications; E66.9 Obesity, unspecified; Z79.84 Long term (current) use of oral hypoglycemic drugs; Z20.822 Contact with and (suspected) exposure to COVID-19; Z68.41 Body mass index [BMI] 40.0-44.9, adult; Z79.82 Long term (current) use of aspirin; W00.0XXA Fall on same level due to ice and snow, initial encounter
CPT/HCPCS: 0240U; 73552; 73562; 96374; 96375; 99284; J2270; J2405; J7030; 99283

== ENCOUNTER 2023-09-26 09:41 | Emergency (ER) | payer BC ==
[2023-09-26] MEDS ORDERED: Albuterol/Ipratropium 3.0-0.5 MG/3 ML Neb Soln NEB ONE (09:59)
[2023-09-26] MEDS ORDERED: methylPREDNISolone Sodium Succinate 125 MG/2 ML SDV IM ONE (09:59)
== END 2023-09-26 11:03 | disposition home or self-care (01) ==
LOC: MW.ED 09:41
DX: J18.9 Pneumonia, unspecified organism (principal); J44.9 Chronic obstructive pulmonary disease, unspecified; E11.9 Type 2 diabetes mellitus without complications; E66.9 Obesity, unspecified; Z68.41 Body mass index [BMI] 40.0-44.9, adult; Z79.899 Other long term (current) drug therapy
CPT/HCPCS: 71046; 94640; 96372; 99285; J2930; 99283; J7620-GY